=== PATIENT | female | born 1960 | race Caucasian/White ===

== ENCOUNTER → 2017-10-08 | Outpatient (CLI) | payer OTHER ==
--- NOTE | 2017-10-08 14:56 | XR ---
Sacrum and coccyx HISTORY: Sacroiliitis, pain 3 views of the sacrum and coccyx Sacroiliac joints show no erosion or ankylosis, no significant spurring. There is a dextroscoliosis p resent at the lower lumbar spine. Bone mineralization is maintained. No evident lytic or blastic lesi on. Some sclerosis present in the posterior elements of the lumbar spine may be indicative of facet a rthropathy. Suspect some mild spondylosis in the lower lumbar spine. No fracture or dislocation. Scle rosis of the pubic symphysis may represent IMPRESSION: Suspect degenerative disc disease and facet arthropathy.
== END | disposition home or self-care (01) ==
LOC: RADXRYALE 10:18
PROVIDERS: ATTEND Family Medicine
DX: M46.1 Sacroiliitis, not elsewhere classified (principal); M53.3 Sacrococcygeal disorders, not elsewhere classified
CPT/HCPCS: 72220

== ENCOUNTER → 2018-03-14 | Outpatient (CLI) | payer OTHER ==
--- NOTE | 2018-03-14 12:48 | FL ---
Modified barium swallow. HISTORY: Dysphagia. Modified barium swallow was performed with the department of speech pathology. The patient was prese nted with various consistencies of barium. There is no evidence for aspiration or penetration. Ventral spur formation at a lower cervical level does result in posterior impression upon the esophagus. Full report is to follow from the department of speech pathology. Impression: Ventral spur formation at a lower cervical level does result in posterior impression upo n the esophagus.
== END | disposition home or self-care (01) ==
LOC: RADFLMAIN 11:31
PROVIDERS: ATTEND Family Medicine
DX: R13.10 Dysphagia, unspecified (principal); K21.9 Gastro-esophageal reflux disease without esophagitis
CPT/HCPCS: 74230

== ENCOUNTER → 2018-08-28 | Outpatient (CLI) | payer OTHER ==
--- NOTE | 2018-08-29 11:11 | MM ---
Reason for exam: screening (asymptomatic). Last mammogram was performed 1 year and 4 months ago. History: Family history of breast cancer in mother and breast cancer in maternal aunt. Benign excisional biopsy of the right breast. Physical Findings: A clinical breast exam by your physician is recommended on an annual basis and results should be correlated with mammographic findings. MG 3D Screening Mammo W/Cad Bilateral CC and MLO view(s) were taken. Prior study comparison: April 23, 2017, mammogram, performed at [facility]. March 29, 2016, mammogram, performed at [facility]. There are scattered fibroglandular densities. No significant changes when compared with prior studies. ASSESSMENT: Benign, BI-RAD 2 RECOMMENDATION: Routine screening mammogram of both breasts in 1 year.
== END | disposition home or self-care (01) ==
LOC: RADMAMWWP 10:22
PROVIDERS: ATTEND Family Medicine
DX: Z12.31 Encounter for screening mammogram for malignant neoplasm of breast (principal)
CPT/HCPCS: 77063; 77067

== ENCOUNTER → 2019-05-21 | Outpatient (CLI) | payer OTHER ==
--- NOTE | 2019-05-22 06:55 | US ---
EXAMINATION TYPE: US pelvic complete DATE OF EXAM: 05/21/2019 COMPARISON: Pelvic MRI May 10, 2017 CLINICAL HISTORY: N92.1 Menorrhagia w/irregular cycle. TECHNIQUE: Transabdominal (TA). Date of LMP: Patient had bleeding from the beginning of March until the April 30. EXAM MEASUREMENTS: Uterus: 9.9 x 4.0 x 4.9 cm Endometrial Stripe: 0.5 cm Right Ovary: Surgically absent Left Ovary: 1.8 x 1.3 x 0.9 cm 1. Uterus: Anteverted wnl 2. Endometrium: wnl 3. Right Ovary: Surgically absent 4. Left Ovary: wnl 5. Bilateral Adnexa: wnl 6. Posterior cul-de-sac: wnl Transabdominal pelvic ultrasound shows an anteverted uterus with endometrial stripe measuring up to 6 mm which is perhaps mild to minimally thickened for postmenopausal female. No free fluid. Normal size left ovary. Right ovary surgically absent. No adnexal masses. IMPRESSION: Suboptimal study in transvaginal investigation was not performed. 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 Mild to minimal thickening of endometrial stripe without further investigation b y transvaginal pelvic investigation to better evaluate and characterize.
== END | disposition home or self-care (01) ==
LOC: RADUSWWP 16:09
PROVIDERS: ATTEND Obstetrics & Gynecology
DX: R93.89 Abnormal findings on diagnostic imaging of other specified body structures (principal); N92.1 Excessive and frequent menstruation with irregular cycle
CPT/HCPCS: 76856

== ENCOUNTER 2019-06-04 06:24 | Day surgery (SDC) | payer OTHER ==
[2019-05-29 17:49] VITALS: BMI 33.0
--- NOTE | 2019-06-03 20:45 | P.HPOB ---
History of Present Illness H&P Date: 06/03/19 Chief Complaint: Menorrhagia with irregular cycle This is a 59 y.o. female, 3, para 3, who presents for dilatation and curettage with hysteroscopy and Novasure endometrial ablation due to menorrhagia with irregular cycle. She complains of heavy, irregular, and painful menses for the last 3 years. Her pelvic US showed uterus measuring 9.9 x 4 x 4.9 cm and endometrial stripe thickness or 5 mm. Left ovary appears normal and right ovary is surgically removed. Her menses are occuring every 1-8 monts lasting 2.5-3 weeks with heavy clots. OB Hx: . 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 Review of Systems Constitutional: Reports night sweats, Reports weight loss, Denies chills, Denies fever Eyes: bilateral blurred vision, denies pain Ears, nose, mouth and throat: Denies headache, Denies sore throat Cardiovascular: Reports palpitations (occ), Denies chest pain, Denies shortness of breath Respiratory: Denies cough Gastrointestinal: Denies abdominal pain, Denies diarrhea, Denies nausea, Denies vomiting Genitourinary: Reports dysmenorrhea, Reports menorrhagia, Reports stress incontinence, Reports urinary frequency, Denies dysuria, Denies hematuria Menstruation: Reports cycle variable, Reports menses variable Musculoskeletal: Reports myalgias Neurological: Denies numbness, Denies weakness Psychiatric: Reports anxiety, Reports change in sleep habits, Reports difficulty concentrating, Reports insomnia, Reports irritability Endocrine: Reports flushing Past Medical History Past Medical History: GERD/Reflux, Hyperlipidemia, Osteoarthritis (OA), Thyroid Disorder Additional Past Medical History / Comment(s): Hx diverticulitis. Edema in ankles occ. States hx of CP 2019, went to [facility], told it was D/T flu related Sx. Heavy, irreg menses History of Any Multi-Drug Resistant Organisms: None Reported Past Surgical History: Section, Cholecystectomy, Orthopedic Surgery Additional Past Surgical History / Comment(s): C-S x2. Heel spur. Exc ovarian cyst. RK eye surg. Retinal eye tear surg. Rt oophorectomy. Hemorrhoid stapling. Colonoscopy Past Anesthesia/Blood Transfusion Reactions: Family History of Problems w/ Anesthesia Additional Past Anesthesia/Blood Transfusion Reaction / Comment(s): Mother had prob, unsure what. Past Psychological History: Anxiety Smoking Status: Former smoker Past Alcohol Use History: Rare Past Drug Use History: None Reported - Past Family History Father Brother(s) Family Medical History: Cancer, Deep Vein Thrombosis (DVT) Mother Family Medical History: Cancer, Diabetes Mellitus, Deep Vein Thrombosis (DVT) Medications and Allergies Home Medications Medication Instructions Recorded Confirmed Type Cholecalciferol [Vitamin D3 (25 2,000 unit PO DAILY 05/29/19 06/04/19 History Mcg = 1000 Iu)] Ibuprofen [Motrin] 800 mg PO DIRECTED PRN 05/29/19 06/04/19 History Levothyroxine Sodium [Synthroid] 100 mcg PO DAILY 05/29/19 06/04/19 History Allergies Allergy/AdvReac Type Severity Reaction Status Date / Time celecoxib [From Celebrex] Allergy bladder Verified 05/29/19 17:27 prob, nausea, itching cephalexin [From Keflex] Allergy flu-like Verified 05/29/19 17:27 symptoms, fatigue clindamycin Allergy Diarrhea Verified 05/29/19 17:27 codeine Allergy Rapid Verified 05/29/19 17:27 Heart Rate, "out of it" doxycycline Allergy yeast Verified 05/29/19 17:27 infection levofloxacin [From Levaquin] Allergy knee, Verified 05/29/19 17:27 joint pain, tendon issues loratadine [From Claritin] Allergy leg Verified 05/29/19 17:27 cramps, severe minocycline Allergy Abdominal Verified 05/29/19 17:27 Pain, sore throat, indigestion morphine Allergy Rapid Verified 05/29/19 17:27 Heart Rate, dyspnea prednisone Allergy leg pain, Verified 05/29/19 17:27 cramps simvastatin [From Zocor] Allergy head ache, Verified 05/29/19 17:27 joint pain tolterodine [From Detrol] Allergy migraines Verified 05/29/19 17:27 acetaminophen [From Vicodin] AdvReac didn't Verified 05/29/19 17:27 relieve pain ciprofloxacin [From Cipro] AdvReac tendon Verified 05/29/19 17:27 pain, severe hydrocodone [From Vicodin] AdvReac didn't Verified 01/03/20 17:27 relieve pain powder in gloves Allergy burning of Uncoded 05/29/19 17:45 skin Exam Osteopathic Statement: *. No significant issues noted on an osteopathic structural exam other than those noted in the History and Physical/Consult. HEENT: Within normal limits Heart: Regular rate and rhythm Lungs: clear to auscultation bilaterally Abdomen: soft, non-tender Pelvic: uterus small anteverted, non-tender, no adnexal masses or tender Extremities: neg. Homans Assessment and Plan (1) Menorrhagia with irregular cycle Current Visit: No Status: Acute Code(s): N92.1 - EXCESSIVE AND FREQUENT MENSTRUATION WITH IRREGULAR CYCLE SNOMED Code(s): 983630589 Plan: Proceed with dilatation and curettage with hysterectomy and Novasure endometrial ablation. I have discussed the risks, benefits, and alternative therapies for the above- mentioned procedure and for both sedation/anesthesia as well as necessary blood products administration, if indicated, as they pertain to this patient. The patient has indicated her understanding and acceptance of the risks and procedures discussed.
[~2019-06-04 06:24] MED LIST: LACTATED RINGERS 1,000 ML IV SCH; LIDOCAINE 1% 20 ML VIAL (10MG/ML) FOR IV START INTRADERMA PRN; ONDANSETRON 4 MG/2 ML VIAL IVP ONE; Pre Op ABX Message 1 EACH MISC MISCELLANE ONE; SCOPOLAMINE 1.5MG/72HR PATCH TRANSDERM ONE; fentaNYL (PF) 50 MCG/ML 2 ML AMP IV PRN
[2019-06-04 06:50] VITALS: RESP 16
[2019-06-04] MEDS ORDERED: HYDROmorphone (PF) 1 MG/ML ONE (07:31)
[2019-06-04] MEDS ORDERED: PROPOFOL 10 MG/ML 20 ML VIAL IV ONE (07:31)
[2019-06-04] MEDS ORDERED: KETOROLAC 30 MG/ML 1 ML VIAL ONE (07:31)
[2019-06-04] MEDS ORDERED: LIDOCAINE 1% INJ 10MG/ML (20 ML MDV) ONE (07:31)
[2019-06-04] MEDS ORDERED: MIDAZOLAM 2 MG/2 ML VIAL ONE (07:31)
[2019-06-04] MEDS ORDERED: SUCCINYLCHOLINE CHLORIDE 100 MG/5 ML SYR IV ONE (07:31)
[2019-06-04] MEDS ORDERED: fentaNYL (PF) 50 MCG/ML 2 ML AMP ONE (07:31)
--- NOTE | 2019-06-04 08:06 | P.OP ---
Date of Procedure: 06/04/19 Preoperative Diagnosis: Menorrhagia with irregular cycle Postoperative Diagnosis: Same Procedure(s) Performed: Dilation and curettage with hysteroscopy and NovaSure endometrial ablation Anesthesia: MANN Surgeon: Lesli Harris Estimated Blood Loss (ml): 5 Pathology: other (Endometrial curettings) Condition: stable Disposition: floor Indications for Procedure: This is a 59 y.o. female, 3, para 3, who presents for dilatation and curettage with hysteroscopy and Novasure endometrial ablation due to menorrhagia with irregular cycle. She complains of heavy, irregular, and painful menses for the last 3 years. Her pelvic US showed uterus measuring 9.9 x 4 x 4.9 cm and endometrial stripe thickness or 5 mm. Left ovary appears normal and right ovary is surgically removed. Her menses are occuring every 1-8 monts lasting 2.5-3 weeks with heavy clots. Operative Findings: Uterus is anteverted, sounded to 8 cm. Cervix is sounded to 3 cm. Cervical os is noted to be stenotic. A small amount of old dark brown blood was noted after dilation of the cervix. Upon hysteroscopy, fairly uniform pattern was noted with some distortion on the anterior wall. Minimal endometrial curettings are obtained. Description of Procedure: The patient is taken to the operating room. She is placed in the dorsal lithotomy position after general anesthesia was given. She is prepped and draped in the normal sterile fashion. Bladder is drained with a catheter and then removed. Pelvic exam is performed under anesthesia. Uterus is found to be anteverted with no adnexal masses. She is placed in slight Trendelenburg position. A right angle retractor is used to visualize the cervix. The anterior lip of the cervix is grasped with a single-tooth tenaculum. Cervical os is noted to be stenotic. A hemostat is used to gently open the cervix and then a small probe is inserted to further open the cervix. Cervix is sounded to 3 cm. Uterus is sounded to 8 cm. Cervix is gently dilated with Hewitt dilators until a hysteroscope could be passed. Hysteroscopy is performed using normal saline. The above noted findings are noted. Next a polyp forceps is introduced. A very minimal amount of tissue was obtained. Next medium-sized size sharp curette was placed. A minimal amount of endometrial curettings were obtained. Next NovaSure array was inserted into the endometrial cavity. Length was set at 5 cm and width was determined to be 3.8 cm. Next cavity assessment was completed and passed on the first try. Next NovaSure array was fired at 105 W for 42 seconds. Next the array was removed, inspected and then discarded. Next the hysteroscope was reinserted. Uniform charring was noted. Pictures were taken. Hysteroscope was removed. Single-tooth tenaculum was removed from the anterior lip of the cervix. Minimal bleeding was noted. All other instruments removed from the vagina. Sponge counts were correct. Patient is taken to recovery room in stable condition.
[2019-06-04 08:23] VITALS: TEMP 97.5
[2019-06-04] MEDS ORDERED: diphenhydrAMINE 50 MG/ML 1 ML VIAL IVP ONE (09:04)
[2019-06-04 10:05] VITALS: BP 105/69; PULSE 57
== END 2019-06-04 10:26 | disposition home or self-care (01) ==
LOC: OR 06:24
PROVIDERS: ATTEND Obstetrics & Gynecology
DX: N84.0 Polyp of corpus uteri (principal); N85.4 Malposition of uterus; N88.2 Stricture and stenosis of cervix uteri; K21.9 Gastro-esophageal reflux disease without esophagitis; E78.5 Hyperlipidemia, unspecified; M19.90 Unspecified osteoarthritis, unspecified site; E07.9 Disorder of thyroid, unspecified; F41.9 Anxiety disorder, unspecified; K57.90 Diverticulosis of intestine, part unspecified, without perforation or abscess without bleeding; Z91.040 Latex allergy status; Z88.1 Allergy status to other antibiotic agents; Z88.5 Allergy status to narcotic agent; Z88.8 Allergy status to other drugs, medicaments and biological substances; Z90.721 Acquired absence of ovaries, unilateral; Z98.890 Other specified postprocedural states; Z86.19 Personal history of other infectious and parasitic diseases; Z90.49 Acquired absence of other specified parts of digestive tract; Z86.69 Personal history of other diseases of the nervous system and sense organs; Z87.891 Personal history of nicotine dependence; Z79.890 Hormone replacement therapy; Z79.1 Long term (current) use of non-steroidal anti-inflammatories (NSAID); Z91.048 Other nonmedicinal substance allergy status; Z84.89 Family history of other specified conditions; Z80.9 Family history of malignant neoplasm, unspecified; Z82.49 Family history of ischemic heart disease and other diseases of the circulatory system; Z83.3 Family history of diabetes mellitus
CPT/HCPCS: 88305; 58563; J2250; J1200; J2405; J2001; J3010; J1885; J1170; J0330; J2704

== ENCOUNTER → 2019-11-13 | Outpatient (CLI) | payer OTHER ==
--- NOTE | 2019-11-16 10:18 | MM ---
Reason for exam: screening (asymptomatic). Last mammogram was performed 1 year and 2 months ago. History: Family history of breast cancer in mother and breast cancer in maternal aunt. Benign excisional biopsy of the right breast. Physical Findings: A clinical breast exam by your physician is recommended on an annual basis and results should be correlated with mammographic findings. MG 3D Screening Mammo W/Cad Bilateral CC and MLO view(s) were taken. Prior study comparison: August 28, 2018, bilateral MG 3d screening mammo w/cad. April 23, 2017, mammogram, performed at [facility]. The breast tissue is heterogeneously dense. This may lower the sensitivity of mammography. There are benign appearing round calcifications bilaterally. There is no discrete abnormality. ASSESSMENT: Benign, BI-RAD 2 RECOMMENDATION: Routine screening mammogram of both breasts in 1 year.
== END | disposition home or self-care (01) ==
LOC: RADMAMWWP 13:55
PROVIDERS: ATTEND Obstetrics & Gynecology
DX: Z12.31 Encounter for screening mammogram for malignant neoplasm of breast (principal)
CPT/HCPCS: 77063; 77067

== ENCOUNTER → 2020-03-07 | Outpatient (CLI) | payer OTHER ==
--- NOTE | 2020-03-22 14:41 | EM ---
This is a report on the 14 day event monitor. Baseline EKG showed sinus rhythm. Patient mostly remained in sinus rhythm and sinus tachycardia. There are occasional APCs and PVCs and short runs of paroxysmal SVT. The paroxysmal SVT consist of about 4-5 beats. At the time. Patient complained of racing of the heart beat and irregular heartbeat on many occasions. Mostly correlating signs sinus rhythm. Occasional correlation with APCs and PVCs noted. No significant ventricular arrhythmias. Final impression #1. Sinus rhythm and sinus tachycardia #2. Brief episodes of SVT consisting of 4 to 5 beats, asymptomatic #3 occasional APCs and PVCs. #4. Patient's symptoms of irregular heartbeat and flutter did not correlate with any significant cardiac events. There appears some correlation with APCs and PVCs. MTDD
--- NOTE | 2020-03-22 14:48 | P.CEMON ---
This is a report on the 14 day event monitor. Baseline EKG showed sinus rhythm. Patient mostly remained in sinus rhythm and sinus tachycardia. There are occasional APCs and PVCs and short runs of paroxysmal SVT. The paroxysmal SVT consist of about 4-5 beats. At the time. Patient complained of racing of the heart beat and irregular heartbeat on many occasions. Mostly correlating signs sinus rhythm. Occasional correlation with APCs and PVCs noted. No significant ventricular arrhythmias. Final impression #1. Sinus rhythm and sinus tachycardia #2. Brief episodes of SVT consisting of 45 beats, asymptomatic #3 occasional APCs and PVCs. #4. Patient's symptoms of irregular heartbeat and flutter did not correlate with any significant cardiac events. There appears some correlation with APCs and PVCs.
== END | disposition home or self-care (01) ==
LOC: RADECHMAIN 11:53
PROVIDERS: ATTEND Family Medicine
DX: I49.9 Cardiac arrhythmia, unspecified (principal); R00.0 Tachycardia, unspecified; R00.2 Palpitations
CPT/HCPCS: 93270

== ENCOUNTER → 2020-03-17 | Outpatient (CLI) | payer OTHER ==
--- NOTE | 2020-03-17 15:41 | US ---
EXAMINATION TYPE: US thyroid st tissue head/neck DATE OF EXAM: 03/17/2020 COMPARISON: NONE CLINICAL HISTORY: E83.52 hypercalcemia,E21.0 primary hyperparathyroid. hypercalcemia, hyperparathyroi dism GLAND SIZE: Right Lobe: 4.0 x 1.6 x 1.3 cm Overall Parenchyma: homogenous Left Lobe: 3.5 x 1.1 x 1.3 cm Overall Parenchyma: homogeneous Isthmus Thickness: 0.3 cm NODULES RIGHT: # of nodules measured on right: 0 LEFT: # of nodules measured on left: 0 ISTHMUS: # of nodules measured in the isthmus: 0 Bilateral neck scanned, no evidence of lymphadenopathy. Homogeneous small size thyroid without suspicious focal nodule. IMPRESSION: As above. No suspicious adjacent thyroid masses to suggest focal parathyroid adenoma.
== END | disposition home or self-care (01) ==
LOC: RADUSWWP 14:52
PROVIDERS: ATTEND Family Medicine
DX: E83.52 Hypercalcemia (principal)
CPT/HCPCS: 76536

== ENCOUNTER → 2020-07-15 | Outpatient (CLI) | payer OTHER ==
[2020-07-15 10:12] VITALS: BP 128/77; PULSE 76; RESP 16; TEMP 97.7
--- NOTE | 2020-07-15 10:24 | P.GSHP ---
History of Present Illness H&P Date: 07/15/20 Chief Complaint: breast lump Estela is a 60 year old white female seen in consultation for Dr. Harris with a "knot" above her right breast. This has been present for several months. She has not had anything like this in the past. It is not painful. It has gotten larger. She has not noted any other lumps masses or nodules in either breast for which she is concerned. She had a bilateral mammogram on which was benign BIRADS 2. She is not complaining of any nipple discharge or skin changes. She has no history of any recent trauma or infection of the breast. Caffeine: hot chocolate daily nicotine: former smoker stopped 1979 umu-bromine: hot chocolate daily Family history: Mother: Breast cancer, dx: 69 of this at 78 maternal aunt: breast cancer dx: at 47, at 57 of breast cancer brother: stomach cancer paternal grandfather: prostate Hormonal History: menarche: 17 , breast fed: no, age at first :21 menopause: uterine ablation last year, no period since, at 59 BCP: less than one year Surgical History: heel spurs two C-sections gallbaldder cyst on ovary single oophrectomy Hemorrhoid surgery RK surgery Medical History: hypothyroid hyperparathyroid: scheduled for surgery at [place] next week, [place] 11.4 Social History: nicotine: none, stopped 1979 alcohol: none drugs: none - Constitutional Constitutional: Reports sweats - EENT Eyes: denies blurred vision, denies pain Ears: deny: decreased hearing, tinnitus Ears, nose, mouth and throat: Denies headache, Denies sore throat - Breasts Breasts: bilateral: as per HPI - Cardiovascular Cardiovascular: Denies chest pain, Denies shortness of breath - Respiratory Respiratory: Denies cough, Denies 7 - Gastrointestinal Gastrointestinal: Reports constipation, Denies abdominal pain, Denies diarrhea, Denies nausea, Denies vomiting - Genitourinary (Female) Genitourinary: Denies dysuria, Denies hematuria - Menstruation Menstruation: Reports postmenopausal - Musculoskeletal Musculoskeletal: Reports myalgias - Integumentary Integumentary: Denies pruritus, Denies rash - Neurological Neurological: Denies numbness, Denies weakness - Psychiatric Psychiatric: Reports anxiety, Denies depression - Endocrine Comment: hypothryoid, hyperparathyroid - Hematologic/Lymphatic Comment: none - Allergic/Immunologic Allergic/Immunologic: Reports seasonal allergies Medications and Allergies Home Medications Medication Instructions Recorded Confirmed Type Cholecalciferol [Vitamin D3 (25 2,000 unit PO DAILY 05/29/19 06/04/19 History Mcg = 1000 Iu)] Ibuprofen [Motrin] 800 mg PO DIRECTED PRN 05/29/19 06/04/19 History Levothyroxine Sodium [Synthroid] 100 mcg PO DAILY 05/29/19 06/04/19 History Allergies Allergy/AdvReac Type Severity Reaction Status Date / Time celecoxib [From Celebrex] Allergy bladder Verified 07/15/20 09:59 prob, nausea, itching cephalexin [From Keflex] Allergy flu-like Verified 07/15/20 09:59 symptoms, fatigue clindamycin Allergy Diarrhea Verified 07/15/20 09:59 codeine Allergy Rapid Verified 07/15/20 09:59 Heart Rate, "out of it" doxycycline Allergy yeast Verified 07/15/20 09:59 infection levofloxacin [From Levaquin] Allergy knee, Verified 07/15/20 09:59 joint pain, tendon issues loratadine [From Claritin] Allergy leg Verified 07/15/20 09:59 cramps, severe minocycline Allergy Abdominal Verified 07/15/20 09:59 Pain, sore throat, indigestion morphine Allergy Rapid Verified 07/15/20 09:59 Heart Rate, dyspnea prednisone Allergy leg pain, Verified 07/15/20 09:59 cramps simvastatin [From Zocor] Allergy head ache, Verified 07/15/20 09:59 joint pain tolterodine [From Detrol] Allergy migraines Verified 07/15/20 09:59 acetaminophen [From Vicodin] AdvReac didn't Verified 07/15/20 09:59 relieve pain ciprofloxacin [From Cipro] AdvReac tendon Verified 07/15/20 09:59 pain, severe hydrocodone [From Vicodin] AdvReac didn't Verified 07/15/20 09:59 relieve pain powder in gloves Allergy burning of Uncoded 07/15/20 09:59 skin Surgical - Exam BMI 30.8 - General well developed, no distress - Eyes normal ocular movement - ENT normal pinna, normal mucosa - Neck no masses, trachea midline - Respiratory normal respiratory effort, clear to auscultation - Cardiovascular Rhythm: regular Heart Sounds: normal: S1, S2 - Abdomen Abdomen: soft, bowel sounds - Integumentary normal turgor - Neurologic no disoriented, no combative - Musculoskeletal normal gait, normal posture - Psychiatric oriented to time, oriented to person, oriented to place, speech is normal, memory intact breast exam: BRA: 36A inspection: Grade 2 ptosis bilateral Palpation: Right breast: Multi-positional exam of the breast does not reveal any dominant masses or nodules of concern in the breast, on the right chest wall just superior to the area of the breast there is approximately a 1 cm area of increased induration Right axilla: No adenopathy of concern Left breast: Multi-positional exam no dominant masses or nodules of concern, fibrocystic changes Left axilla: No adenopathy of concern Results Patient's most recent mammogram results were reviewed this was from Assessment and Plan Assessment: Impression: 1. Area of induration/nodularity right chest wall 2. Benign BIRADS 2 mammogram in October 2019 3. Fibrocystic breast changes 4. Family history of breast cancer 5. Hypothyroid 6. Hyperparathyroid Plan: 1. Ultrasound area of concern right chest wall 2. Follow-up after ultrasound is performed 3. Patient is scheduled for parathyroid surgery next week The patient will follow up here after her parathyroid surgery for more definitive evaluation of the nodularity on the right chest wall. CC: Dr. Harris, Dr. Paul Encounter 35 minutes, time spent and physical examination, review of medical records, and consultation.
--- NOTE | 2020-07-15 13:27 | US ---
EXAMINATION TYPE: US mass soft tissue chest/back DATE OF EXAM: 07/15/2020 COMPARISON: NONE CLINICAL HISTORY: R22.2. Pt states palpable lump right medial chest wall No abnormality visualized at pt's palpable area right medial chest wall No cystic or solid areas are evident. Preliminary results were reviewed with the referring surgeon. IMPRESSION: 1. No suspicious ultrasound abnormality.
== END | disposition home or self-care (01) ==
LOC: WWCWWP 09:51
PROVIDERS: ATTEND Surgery
DX: R22.2 Localized swelling, mass and lump, trunk (principal)

== ENCOUNTER → 2020-08-02 | Outpatient (CLI) | payer OTHER ==
[2020-08-02 19:42] LABS: African American GFR (CKD) 81.7 (60.0-200.0); Albumin 4.7 g/dL (3.80-4.90); Albumin/Globulin Ratio 1.88 (1.60-3.17); BUN/Creat Ratio 18.89 Ratio (12.00-20.00); Calcium 10.2 mg/dL (8.7-10.3); Globulin 2.5 g/dL (1.6-3.3); Non-African American GFR(CKD) 70.5 (60.0-200.0); Potassium 4.5 mmol/L (3.5-5.5); Total Bilirubin 0.5 mg/dL (0.3-1.2); Total Protein 7.2 g/dL (6.2-8.2)
== END | disposition home or self-care (01) ==
LOC: LABWHC1 11:29
PROVIDERS: ATTEND Internal Medicine Endocrinology, Diabetes & Metabolism
DX: E21.0 Primary hyperparathyroidism (principal)
CPT/HCPCS: 36415; 80053; 82306; 83970

== ENCOUNTER → 2020-08-18 | Outpatient (CLI) | payer OTHER ==
[2020-08-18 10:17] VITALS: BP 124/84; PULSE 63; RESP 16; TEMP 97.6
--- NOTE | 2020-08-18 10:43 | P.PCN ---
Date of Procedure: 08/18/20 Preoperative Diagnosis: Nodule and skin thickening right chest wall Postoperative Diagnosis: same Procedure(s) Performed: Punch biopsy lesion right chest wall Anesthesia: local Surgeon: Chantal No Pathology: other (Tissue right chest wall) Condition: stable Disposition: same day Indications for Procedure: Skin thickening/nodularity right chest wall Description of Procedure: Area of concern in the right chest was prepped using Betadine. 1% lidocaine was used to anesthetize the area of concern. A 4 mm punch biopsy procedure was performed. The specimen was removed. There was some mild oozing and a suture was placed. The patient tolerated the procedure in stable condition. She will follow up next week for pathology results.
== END ==
LOC: WWCWWP 10:02
PROVIDERS: ATTEND Surgery
DX: R22.2 Localized swelling, mass and lump, trunk (principal)

== ENCOUNTER → 2020-08-25 | Outpatient (CLI) | payer OTHER ==
[2020-08-25 10:11] VITALS: BP 127/82; PULSE 65; RESP 18; TEMP 97.7
--- NOTE | 2020-08-25 10:51 | P.PN ---
Progress Note - Text Progress Note Date: 08/25/20 Estela is a 60 year old female status post a right chest wall punch biopsy on [id number]. This revealed actinic clearly damaged skin with focal mild atypia and dermal fibrosis, negative for malignancy. The patient tolerated the procedure well. Incision: Clean and dry Sutures removed Patient to follow up in October after her bilateral mammogram CC: Dr. Rebolledo, Dr. Harris
== END | disposition home or self-care (01) ==
LOC: WWCWWP 09:57
PROVIDERS: ATTEND Surgery
DX: Z48.02 Encounter for removal of sutures (principal)

== ENCOUNTER → 2020-09-23 | Outpatient (CLI) | payer OTHER ==
[2020-09-23 22:51] LABS: African American GFR (CKD) 94.2 (60.0-200.0); Albumin 4.7 g/dL (3.80-4.90); Albumin/Globulin Ratio 1.68 (1.60-3.17); Anion Gap 8.3 mmol/L (4.00-12.00); Calcium 9.6 mg/dL (8.7-10.3); Carbon Dioxide 26.7 mmol/L (21.6-31.8); Chol/HDL Ratio 5.58; Globulin 2.8 g/dL (1.6-3.3); LDL Cholesterol,Calculated 107.8 mg/dL (0.0-131.0); Non-African American GFR(CKD) 81.3 (60.0-200.0); Potassium 4.5 mmol/L (3.5-5.5); Total Bilirubin 0.7 mg/dL (0.3-1.2); Total Protein 7.5 g/dL (6.2-8.2); VLDL Calculation 66.2 mg/dL (5.00-40.00)
== END | disposition home or self-care (01) ==
LOC: LABWHC1 09:18
PROVIDERS: ATTEND Family Medicine
DX: E03.9 Hypothyroidism, unspecified (principal); E78.2 Mixed hyperlipidemia; E87.8 Other disorders of electrolyte and fluid balance, not elsewhere classified
CPT/HCPCS: 36415; 80053; 80061; 84443

== ENCOUNTER → 2021-01-19 | Outpatient (CLI) | payer OTHER ==
[2021-01-19 12:38] VITALS: BP 119/81; PULSE 97; RESP 16; TEMP 98
--- NOTE | 2021-01-19 12:53 | P.PN ---
Subjective Progress Note Date: 01/19/21 Principal diagnosis: fibrocystic breast Estela is a 60 year old white female seen initially in consultation for Dr. Harris with a "knot" above her right breast. This has been present for several months. She has not had anything like this in the past. It is not painful. It has gotten larger. She has not noted any other lumps masses or nodules in either breast for which she is concerned. [place] [address] which was benign BIRADS 2. She is not complaining of any nipple discharge or skin changes. She has no history of any recent trauma or infection of the breast. She underwent a punch biopsy of the skin of the right chest wall and 320 521. This revealed actinically damaged skin with focal mild atypia and dermal fibrosis negative for malignancy. [place] [address] this was felt to be incomplete revealing a nodular density in the inner upper right breast zone b. An ultrasound was [place] [address] which did not reveal any distinct solid or cystic lesions. It was felt to be probably benign and six-month follow-up right breast mammogram was recommended. The patient has not noted any changes in either breast or chest wall. The "not that she had prior has not changed. Caffeine: stopped hot chocolate daily nicotine: former smoker stopped 1979 Chocolate: At this time occasional Family history: Mother: Breast cancer, dx: 69 of this at 78 maternal aunt: breast cancer dx: at 47, at 57 of breast cancer brother: stomach cancer paternal grandfather: prostate Hormonal History: menarche: 17 , breast fed: no, age at first :21 menopause: uterine ablation last year, no period since, at 59 BCP: less than one year Surgical History: heel spurs two C-sections gallbaldder cyst on ovary single oophrectomy Hemorrhoid surgery RK surgery parathyroid surgery Medical History: hypothyroid hyperparathyroid followed by DR. Leblanc Social History: nicotine: none, stopped 1979 alcohol: none drugs: none - Constitutional Constitutional: Reports sweats - EENT Eyes: denies blurred vision, denies pain Ears: deny: decreased hearing, tinnitus Ears, nose, mouth and throat: Denies headache, Denies sore throat - Breasts Breasts: bilateral: as per HPI - Cardiovascular Cardiovascular: Denies chest pain, Denies shortness of breath - Respiratory Respiratory: Denies cough - Gastrointestinal Gastrointestinal: Reports constipation, Denies abdominal pain, Denies diarrhea, Denies nausea, Denies vomiting - Genitourinary (Female) Genitourinary: Denies dysuria, Denies hematuria - Menstruation Menstruation: Reports postmenopausal - Musculoskeletal Musculoskeletal: Reports myalgias - Integumentary Integumentary: Denies pruritus, Denies rash - Neurological Neurological: Denies numbness, Denies weakness - Psychiatric Psychiatric: Reports anxiety, Denies depression - Endocrine Comment: hypothryoid, hyperparathyroid - Hematologic/Lymphatic Comment: none - Allergic/Immunologic Allergic/Immunologic: Reports seasonal allergies Objective - Vital Signs Vital signs: Vital Signs Temp 98.0 F 01/19/21 12:34 Pulse 97 01/19/21 12:34 Resp 16 01/19/21 12:34 BP 119/81 01/19/21 12:34 Pulse Ox 97 01/19/21 12:34 Intake & Output 01/18/21 01/19/21 01/19/21 18:59 06:59 18:59 Weight 80.739 kg - Constitutional General appearance: Present: average body habitus - EENT Eyes: Present: EOMI ENT: Present: hearing grossly normal - Neck Neck: Present: normal ROM - Respiratory Respiratory: bilateral: CTA - Cardiovascular Rhythm: regular Heart sounds: normal: S1, S2 - Integumentary Integumentary Comment(s): incisions well healed - Musculoskeletal Musculoskeletal: Present: gait normal - Psychiatric Psychiatric: Present: A&O x's 3, appropriate affect, intact judgment & insight - Additional findings Additional findings: [place] examination: Inspection: Bilateral grade 2 ptosis Palpation: Right breast: Multi-positional exam fibrocystic changes, no discrete dominant masses or nodules of concern Right axilla: No adenopathy of concern Left breast: Multiple positional exam fibrocystic changes, no dominant masses or nodules of concern Left axilla: No adenopathy of concern Assessment and Plan Assessment: Impression/Plan: 1. Fibrocystic breast changes 2. Recent mammogram and ultrasound of right breast BIRADS 3 repeat bilateral mammogram and right breast ultrasound in 6 months 3. Patient notes anything of concern we'll see her sooner 4. Patient is following with endocrinology regarding possible elevated calcium Cc: Dr. Celeste
== END ==
LOC: WWCWWP 12:28
PROVIDERS: ATTEND Surgery
DX: N60.11 Diffuse cystic mastopathy of right breast (principal); E03.9 Hypothyroidism, unspecified; Z79.890 Hormone replacement therapy; Z87.891 Personal history of nicotine dependence; Z88.6 Allergy status to analgesic agent; Z88.1 Allergy status to other antibiotic agents; Z88.5 Allergy status to narcotic agent; Z88.8 Allergy status to other drugs, medicaments and biological substances

== ENCOUNTER → 2021-03-22 | Outpatient (CLI) | payer OTHER ==
[2021-03-23 01:17] LABS: African American GFR (CKD) 103.6 (60.0-200.0); Albumin 4.9 g/dL (3.8-4.9); Albumin/Globulin Ratio 1.71 (1.60-3.17); Anion Gap 9.8 mmol/L (4.00-12.00); BUN/Creat Ratio 17.41 Ratio (12.00-20.00); Blood Urea Nitrogen 12.8 mg/dL (9.0-27.0); Calcium 9.8 mg/dL (8.7-10.3); Carbon Dioxide 27.5 mmol/L (21.6-31.8); Globulin 2.8 g/dL (1.6-3.3); Non-African American GFR(CKD) 89.4 (60.0-200.0); Potassium 4.5 mmol/L (3.5-5.5); Total Bilirubin 0.5 mg/dL (0.30-1.20); Total Protein 7.7 g/dL (6.2-8.2)
== END | disposition home or self-care (01) ==
LOC: LABWHC1 12:34
PROVIDERS: ATTEND Internal Medicine Endocrinology, Diabetes & Metabolism
DX: E21.0 Primary hyperparathyroidism (principal); E55.9 Vitamin D deficiency, unspecified
CPT/HCPCS: 36415; 80053; 82306; 83970; 84443

== ENCOUNTER → 2021-04-26 | Outpatient (CLI) | payer OTHER ==
--- NOTE | 2021-04-26 16:53 | US ---
EXAMINATION TYPE: US carotid duplex BILAT DATE OF EXAM: 04/26/2021 COMPARISON: NONE CLINICAL HISTORY: G45.9 Transient cerebral ischemic attack,. EXAM MEASUREMENTS: RIGHT: Peak Systolic Velocity (PSV) cm/sec ----- Right CCA: 79.0 ----- Right ICA: 79.0 ----- Right ECA: 100.0 ICA/CCA ratio: 1.0 RIGHT: End Diastole cm/sec ----- Right CCA: 23.8 ----- Right ICA: 36.2 ----- Right ECA: 21.4 LEFT: Peak Systolic Velocity (PSV) cm/sec ----- Left CCA: 102.0 ----- Left ICA: 82.0 ----- Left ECA: 93.2 ICA/CCA ratio: 0.80 LEFT: End Diastole cm/sec ----- Left CCA: 30.9 ----- Left ICA: 19.6 ----- Left ECA: 19.0 VERTEBRALS (direction of flow): Right Vertebral: Antegrade Left Vertebral: Antegrade Rhythm: Normal No elevated velocities IMPRESSION: 1. No suspicious flow-limiting stenosis based on velocity. Criteria for Assigning % of Stenosis / Diameter reduction (Estimation based on the indirect measurements of the internal carotid artery velocities (ICA PSV). 1. Normal (no stenosis)=ICA PSV < 125 cm/s: ratio < 2.0: ICA EDV<40 cm/s. 2. Less than 50% stenosis=ICA PSV < 125 cm/s: ratio < 2.0: ICA EDV<40 cm/s. 3. 50 to 69% stenosis=ICA PSV of 125 to 230 cm/s: ration 2.0 ? 4.0: ICA EDV 40-100 cm/s. 4. Greater than 70% stenosis to near occlusion= ICA PSV > 230 cm/s: ratio > 4.0: ICA EDV > 100 cm/s. 5. Near occlusion= ICA PSV velocities may be low or undetectable: variable ratio and ICA EDV. 6. Total occlusion=unable to detect flow.
--- NOTE | 2021-04-27 08:51 | ECHOF ---
Referral Reason:G45.9 Transient cerebral ischemic attack, MEASUREMENTS -------- HEIGHT: 160.0 cm WEIGHT: 83.9 kg BP: RVIDd: 2.8 cm (< 3.3) IVSd: 1.5 cm (0.6 - 1.1) LVIDd: 3.1 cm (3.9 - 5.3) LVPWd: 1.4 cm (0.6 - 1.1) IVSs: 1.9 cm LVIDs: 1.9 cm LVPWs: 1.5 cm LAESV Index (A-L): 28.81 ml/m Ao Diam: 2.7 cm (2.0 - 3.7) AV Cusp: 1.7 cm (1.5 - 2.6) LA Diam: 2.9 cm (2.7 - 3.8) MV EXCURSION: 11.820 mm (> 18.000) MV EF SLOPE: 60 mm/s (70 - 150) EPSS: 0.2 cm MV E Keshawn: 0.90 m/s MV DecT: 196 ms MV A Keshawn: 1.04 m/s MV E/A Ratio: 0.87 RAP: 5.00 mmHg RVSP: 30.32 mmHg FINDINGS -------- Sinus rhythm. This was a technically adequate study. The left ventricular size is normal. There is moderate concentric left ventricular hypertrophy. O verall left ventricular systolic function is normal with, an EF between 55 - 60 %. The diastolic fi lling pattern is normal for the age of the patient {E/E'}. The right ventricle is normal in size. Normal LA size by volume 22+/-6 ml/m2. The right atrial size is normal. Interatrial and interventricular septum intact. The aortic valve is trileaflet and appears structurally normal. There is no evidence of aortic regu rgitation. There is no evidence of aortic stenosis. Mild mitral regurgitation is present. No regurgitation noted Trace/mild (physiologic) pulmonic regurgitation. The aortic root size is normal. IVC Not well visulized. There is no pericardial effusion. CONCLUSIONS -------- 1. Sinus rhythm. 2. The left ventricular size is normal. 3. There is moderate concentric left ventricular hypertrophy. 4. Overall left ventricular systolic function is normal with, an EF between 55 - 60 %. 5. The diastolic filling pattern is normal for the age of the patient {E/E'} 6. Trace/mild (physiologic) pulmonic regurgitation. SCHOOL PROGRAM DIRECTOR: Anna Stone RDCS
== END | disposition home or self-care (01) ==
LOC: RADUSWWP 11:05
PROVIDERS: ATTEND Family Medicine
DX: G45.9 Transient cerebral ischemic attack, unspecified (principal); I37.1 Nonrheumatic pulmonary valve insufficiency; I51.7 Cardiomegaly
CPT/HCPCS: 93306; 93880

== ENCOUNTER → 2021-09-28 | Outpatient (CLI) | payer OTHER ==
[2021-09-28 11:15] VITALS: BP 115/83; PULSE 59; RESP 13; TEMP 97.9
--- NOTE | 2021-09-28 12:02 | P.PN ---
Subjective Progress Note Date: 09/28/21 Principal diagnosis: fibrocystic breast changes fibrocystic breast Estela is a 60 year old white female seen initially in consultation for Dr. Harris with a "knot" above her right breast. This has been present for several months. She has not had anything like this in the past. It is not painful. It has gotten larger. She has not noted any other lumps masses or nodules in either breast for which she is concerned. She had a bilateral mammogram on which was benign BIR ADS 2. She is not complaining of any nipple discharge or skin changes. She has no history of any recent trauma or infection of the breast. She underwent a punch biopsy of the skin of the right chest wall and 320 521. This revealed actinically damaged skin with focal mild atypia and dermal fibrosis negative for malignancy. [place] [address] this was felt to be incomplete revealing a nodular density in the inner upper right breast zone b. An ultrasound was recommended. Ultrasound was performed on which did not reveal any distinct solid or cystic lesions. It was felt to be probably benign and six-month follow-up right breast mammogram was recommended. The patient has not noted any changes in either breast or chest wall. The "knot" that she had prior has not changed. 09-25-21 The patient had a bilateral mammogram on 09-04-[address] [facility]; the report was BENIGN BIRAD 2; she also had a right breast mammogram which was BIRAD 1. the recommendation was for repeat mammogram in 1 year. She is complaining of bilateral breast tenderness worse in the left breast. She notes the tenderness several times a week and they feel achy. She is not complaining of any nipple discharge She stop all caffeine, she does not smoke and is not exposed to secondhand smoke, she is not taking any hormonal therapy, and she eats chocolate only occasionally. 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 Caffeine: stopped hot chocolate daily nicotine: former smoker stopped 1980 Chocolate: At this time occasional Family history: Mother: Breast cancer, dx: 69 of this at 78 maternal aunt: breast cancer dx: at 47, at 57 of breast cancer brother: stomach cancer paternal grandfather: prostate Hormonal History: menarche: 17 , breast fed: no, age at first :21 menopause: uterine ablation last year, no period since, at 59 BCP: less than one year Surgical History: heel spurs two C-sections gallbaldder cyst on ovary single oophrectomy Hemorrhoid surgery RK surgery parathyroid surgery Medical History: hypothyroid hyperparathyroid followed by DR. Benji mcgee stroke symptoms resolved Social History: nicotine: none, stopped 1979 alcohol: none drugs: none - Constitutional Constitutional: Reports sweats - EENT Eyes: denies blurred vision, denies pain Ears: deny: decreased hearing, tinnitus Ears, nose, mouth and throat: Denies headache, Denies sore throat - Breasts Breasts: bilateral: as per HPI - Cardiovascular Cardiovascular: Denies chest pain, Denies shortness of breath - Respiratory Respiratory: Denies cough - Gastrointestinal Gastrointestinal: Reports constipation, Denies abdominal pain, Denies diarrhea, Denies nausea, Denies vomiting - Genitourinary (Female) Genitourinary: Denies dysuria, Denies hematuria - Menstruation Menstruation: Reports postmenopausal - Musculoskeletal Musculoskeletal: Reports myalgias - Integumentary Integumentary: Denies pruritus, Denies rash - Neurological Neurological: Denies numbness, Denies weakness - Psychiatric Psychiatric: Reports anxiety, Denies depression - Endocrine Comment: hypothryoid, hyperparathyroid - Hematologic/Lymphatic Comment: none - Allergic/Immunologic Allergic/Immunologic: Reports seasonal allergies Objective - Vital Signs Vital signs: Vital Signs Temp 97.9 F 09/28/21 11:10 Pulse 59 L 09/28/21 11:10 Resp 13 09/28/21 11:10 BP 115/83 09/28/21 11:10 Pulse Ox 96 09/28/21 11:10 Intake & Output 09/27/21 09/28/21 09/28/21 18:59 06:59 18:59 Weight 86.636 kg - Constitutional General appearance: Present: cooperative - EENT Eyes: Present: EOMI ENT: Present: hearing grossly normal - Neck Neck: Present: normal ROM - Respiratory Respiratory: bilateral: CTA - Cardiovascular Rhythm: regular Heart sounds: normal: S1, S2 - Integumentary Integumentary: Present: normal turgor - Musculoskeletal Musculoskeletal: Present: gait normal - Psychiatric Psychiatric: Present: A&O x's 3, appropriate affect, intact judgment & insight - Additional findings Additional findings: Breast Exam: BRA: 40C inspection: bilateral grade 2/3 ptosis palpation: right breast: multipositional exam fibrocystic changes no dominant masses or nodules of concern Right axilla: No adenopathy of concern Left breast: Multi-positional exam fibrocystic changes no dominant masses or notches of concern Left axilla: No adenopathy concern Assessment and Plan Assessment: Impression: Fibrocystic breast changes Plan: Repeat bilateral mammogram in 1 year with physician exam at that time CC: Dr. Rebolledo
== END ==
LOC: WWCWWP 10:59
PROVIDERS: ATTEND Surgery
DX: N60.11 Diffuse cystic mastopathy of right breast (principal); N60.12 Diffuse cystic mastopathy of left breast; E03.9 Hypothyroidism, unspecified; Z86.73 Personal history of transient ischemic attack (TIA), and cerebral infarction without residual deficits; Z87.891 Personal history of nicotine dependence; Z88.1 Allergy status to other antibiotic agents; Z88.5 Allergy status to narcotic agent; Z88.8 Allergy status to other drugs, medicaments and biological substances; Z88.6 Allergy status to analgesic agent

== ENCOUNTER → 2021-10-09 | Outpatient (CLI) | payer OTHER ==
--- NOTE | 2021-10-09 11:50 | XR ---
EXAMINATION TYPE: XR chest 2V DATE OF EXAM: 10/09/2021 COMPARISON: NONE TECHNIQUE: PA and lateral views submitted. HISTORY: Cough FINDINGS: Hypertrophic change of the spine. Hyperinflation. No overt failure. No pleural effusion or pneumothor ax. No focal pneumonia. Heart size normal. IMPRESSION: 1. No acute process.
== END | disposition home or self-care (01) ==
LOC: RADXRYALE 11:00
PROVIDERS: ATTEND Family Medicine
DX: R05.9 Cough, unspecified (principal)
CPT/HCPCS: 71046

== ENCOUNTER → 2021-11-24 | Outpatient (CLI) | payer OTHER ==
--- NOTE | 2021-11-26 10:24 | CT ---
EXAMINATION TYPE: CT heart w calcium score DATE OF EXAM: 11/24/2021 COMPARISON: Chest radiograph 10/09/2021 HISTORY: Screening for cardiovascular disorder. 213.9 CT DLP: 80.80 mGycm Automated exposure control for dose reduction was used. CT CALCIUM SCORING Coronary calcium is a marker for plaque (fatty deposits) in a blood vessel or atherosclerosis (harden ing of the arteries). The presence and amount of calcium detected in a coronary artery by the CT sca n, indicates the presence and amount of atherosclerotic plaque. These calcium deposits appear years before the development of heart disease symptoms such as chest pain and shortness of breath. A calcium score is computed for each of the coronary arteries based upon the volume and density of th e calcium deposits. This can be referred to as your calcified plaque burden. It does not correspond directly to the percentage of narrowing in the artery but does correlate with the severity of the un derlying coronary atherosclerosis. PROCEDURE TECHNIQUE - Prospective Gating was used. Slice thickness: 3mm. Density threshold (HU): 130, Pixel threshold: 3, Algorithm: discrete. RESULTS Region: LM Calcium Score (Agatston): 0 Volume (mm3): 0 Mass (g): 0 Region: RCA Calcium Score (Agatston): 0 Volume (mm3): 0 Mass (g): 0 Region: LAD Calcium Score (Agatston): 0 Volume (mm3): 0 Mass (g): 0 Region: CX Calcium Score (Agatston): 0 Volume (mm3): 0 Mass (g): 0 Region: PDA Calcium Score (Agatston): 0 Volume (mm3): 0 Mass (g): 0 Total: Calcium Score (Agatston): 0 Volume (mm3): 0 Mass (g): 0 TOTAL CALCIUM SCORE: 0 IMPRESSION: Calcium Score: 0 Implication: No identifiable plaque. Risk of Coronary Artery Disease: Very low, generally less than 5%. CALCIUM SCORE IMPLICATION RISK OF C ORONARY ARTERY DISEASE 0 No identifiable plaque Very low, generally less than 5% 1-10 Minimal identifiable plaque Very unlikely, less than 10% 11-100 Definite, at least mild atherosclerotic plaque Mild or m inimal coronary narrowings likely 101-400 Definite, at least moderate atherosclerotic plaque Mild coronary ar albina disease highly likely, significant narrowing possible 401 or Higher Extensive atherosclerotic plaque High lik elihood of at least one significant coronary narrowing
== END | disposition home or self-care (01) ==
LOC: RADCTMAIN 16:29
PROVIDERS: ATTEND Family Medicine
DX: Z12.2 Encounter for screening for malignant neoplasm of respiratory organs (principal); I25.10 Atherosclerotic heart disease of native coronary artery without angina pectoris; Z82.49 Family history of ischemic heart disease and other diseases of the circulatory system
CPT/HCPCS: 75571

== ENCOUNTER → 2022-09-21 | Outpatient (CLI) | payer OTHER ==
--- NOTE | 2022-09-21 14:00 | XR ---
EXAMINATION TYPE: XR chest 2V DATE OF EXAM: 09/21/2022 COMPARISON: NONE TECHNIQUE: PA and lateral views submitted. HISTORY: Shortness of breath FINDINGS: The lungs are clear and there is no pneumothorax, pleural effusion, or focal pneumonia. Heart size normal and no overt failure. Osseous structures demonstrate hypertrophic and degenerative changes of the spine. IMPRESSION: 1. No acute process.
== END | disposition home or self-care (01) ==
LOC: RADXRYALE 13:40
PROVIDERS: ATTEND Physician Assistant
DX: R06.00 Dyspnea, unspecified (principal); R00.2 Palpitations
CPT/HCPCS: 71046

== ENCOUNTER → 2022-10-18 | Outpatient (CLI) | payer OTHER ==
[2022-10-18 12:16] VITALS: BP 130/85; PULSE 67; RESP 16; TEMP 98.3
--- NOTE | 2022-10-18 12:33 | P.PN ---
Subjective Progress Note Date: 10/18/22 Principal diagnosis: fibrocystic breast changes fibrocystic breast changes fibrocystic breast Estela is a 60 year old white female seen initially in consultation for Dr. Harris with a "knot" above her right breast. This has been present for several months. She has not had anything like this in the past. It is not painful. It has gotten larger. She has not noted any other lumps masses or nodules in either breast for which she is concerned. [place] [address] which was benign BIRADS 2. She is not complaining of any nipple discharge or skin changes. She has no history of any recent trauma or infection of the breast. She underwent a punch biopsy of the skin of the right chest wall [place] [address]391. This revealed actinically damaged skin with focal mild atypia and dermal fibrosis negative for malignancy. [place] [address] this was felt to be incomplete revealing a nodular density in the inner upper right breast zone b. An ultrasound [place] [address] which did not reveal any distinct solid or cystic lesions. It was felt to be probably benign and six-month follow-up right breast mammogram was recommended. The patient has not noted any changes in either breast or chest wall. The "knot" that she had prior has not changed. 09-25-21 The patient had a bilateral mammogram on 09-04-21 at [facility]; the report was BENIGN BIRAD 2; she also had a right breast mammogram which was BIRAD 1. the recommendation was for repeat mammogram in 1 year. She is complaining of bilateral breast tenderness worse in the left breast. She notes the tenderness several times a week and they feel achy. She is not complaining of any nipple discharge She stop all caffeine, she does not smoke and is not exposed to secondhand smoke, she is not taking any hormonal therapy, and she eats chocolate only occasionally. 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 10-18-22 [place] [address]. This was BIRADS 2. She developed Belles palsy on 10-08-22. She has drooping of the left side of her mouth. She has had work-up at [place]. It is felt that she did not have a stroke. She is not complaining of any lumps masses or nodules of concern in either breast. The area in the right breast which felt like and not initially is no longer present. Caffeine: stopped hot chocolate daily nicotine: former smoker stopped 1979 Chocolate: At this time occasional Family history: Mother: Breast cancer, dx: 69 of this at 78 maternal aunt: breast cancer dx: at 47, at 57 of breast cancer brother: stomach cancer paternal grandfather: prostate Hormonal History: menarche: 17 , breast fed: no, age at first :21 menopause: uterine ablation last year, no period since, at 59 BCP: less than one year Surgical History: heel spurs two C-sections gallbaldder cyst on ovary single oophrectomy Hemorrhoid surgery RK surgery parathyroid surgery Medical History: hypothyroid hyperparathyroid followed by DR. Benji mcgee stroke symptoms resolved Belles Palsy 10-08-22 Social History: nicotine: none, stopped 1979 alcohol: none drugs: none - Constitutional Constitutional: Reports sweats - EENT Eyes: denies blurred vision, denies pain Ears: deny: decreased hearing, tinnitus Ears, nose, mouth and throat: Denies headache, Denies sore throat - Breasts Breasts: bilateral: as per HPI - Cardiovascular Cardiovascular: Denies chest pain, Denies shortness of breath - Respiratory Respiratory: Denies cough - Gastrointestinal Gastrointestinal: Reports constipation, Denies abdominal pain, Denies diarrhea, Denies nausea, Denies vomiting - Genitourinary (Female) Genitourinary: Denies dysuria, Denies hematuria - Menstruation Menstruation: Reports postmenopausal - Musculoskeletal Musculoskeletal: Reports myalgias - Integumentary Integumentary: Denies pruritus, Denies rash - Neurological Neurological: Denies numbness, Denies weakness - Psychiatric Psychiatric: Reports anxiety, Denies depression - Endocrine Comment: hypothryoid, hyperparathyroid - Hematologic/Lymphatic Comment: none - Allergic/Immunologic Allergic/Immunologic: Reports seasonal allergies Objective - Vital Signs Vital signs: Vital Signs Temp 98.3 F 10/18/22 12:13 Pulse 67 10/18/22 12:13 Resp 16 10/18/22 12:13 BP 130/85 10/18/22 12:13 Pulse Ox 97 10/18/22 12:13 FiO2 Intake & Output 10/17/22 10/18/22 10/18/22 18:59 06:59 18:59 Weight 90.718 kg - Constitutional General appearance: Present: cooperative - EENT Eyes: Present: EOMI ENT: Present: hearing grossly normal - Neck Neck: Present: normal ROM - Respiratory Respiratory: bilateral: CTA - Cardiovascular Rhythm: regular Heart sounds: normal: S1, S2 - Gastrointestinal General gastrointestinal: Present: soft - Integumentary Integumentary: Present: normal turgor - Neurologic Neurologic Comment(s): drooping of the left side of the mouth - Musculoskeletal Musculoskeletal: Present: gait normal - Psychiatric Psychiatric: Present: A&O x's 3, appropriate affect, intact judgment & insight - Additional findings Additional findings: Breast Exam: BRA: 40C inspection: bilateral grade 2/3 ptosis palpation: right breast: multipositional exam fibrocystic changes no dominant masses or nodules of concern Right axilla: No adenopathy of concern Left breast: Multi-positional exam fibrocystic changes no dominant masses or nodules of concern; there is some crusting of the left nipple area with no discrete masses or lumps behind this, there is no definite nipple discharge Left axilla: No adenopathy concern Assessment and Plan Assessment: Impression: Fibrocystic breast changes hypothyroid mini stroke symptoms resolved Belles Palsy 10-08-22, drooping of the left side of her face Bilateral mammogram on 10-08-22 BIRAD 2 Plan: Repeat bilateral mammogram in 1 year with physician exam at that time follow up is any further nipple changes CC: Dr. Rebolledo
== END ==
LOC: WWCWWP 11:42
PROVIDERS: ATTEND Surgery
DX: N60.11 Diffuse cystic mastopathy of right breast (principal); N60.12 Diffuse cystic mastopathy of left breast; E03.9 Hypothyroidism, unspecified; Z80.3 Family history of malignant neoplasm of breast; Z86.73 Personal history of transient ischemic attack (TIA), and cerebral infarction without residual deficits; Z87.19 Personal history of other diseases of the digestive system; Z87.891 Personal history of nicotine dependence; Z88.1 Allergy status to other antibiotic agents; Z88.5 Allergy status to narcotic agent; Z88.6 Allergy status to analgesic agent; Z88.8 Allergy status to other drugs, medicaments and biological substances

== ENCOUNTER → 2023-11-27 | Outpatient (CLI) | payer OTHER ==
[2023-11-27 14:40] VITALS: BP 112/74; PULSE 86; RESP 16; TEMP 97.8
--- NOTE | 2023-11-27 14:46 | P.PN ---
Subjective Progress Note Date: 11/27/23 Principal diagnosis: fibrocystic breast changes 11-27-23 Principal diagnosis: fibrocystic breast changes Estela is a 60 year old white female seen initially in consultation for Dr. Harris with a "knot" above her right breast. This has been present for several months. She has not had anything like this in the past. It is not painful. It has gotten larger. She has not noted any other lumps masses or nodules in either breast for which she is concerned. She had a bilateral mammogram on which was benign BIRADS 2. She is not complaining of any nipple discharge or skin changes. She has no history of any recent trauma or infection of the breast. She underwent a punch biopsy of the skin of the right chest wall [place] [id number]. This revealed actinically damaged skin with focal mild atypia and dermal fibrosis negative for malignancy. [place] [id number] this was felt to be incomplete revealing a nodular density in the inner upper right breast zone b. An ultrasound was recommended. Ultrasound was performed on which did not reveal any distinct solid or cystic lesions. It was felt to be probably benign and six-month follow-up right breast mammogram was recommended. The patient has not noted any changes in either breast or chest wall. The "knot" that she had prior has not changed. 09-25-21 The patient had a bilateral mammogram on 09-04-21 at [facility]; the report was BENIGN BIRAD 2; she also had a right breast mammogram which was BIRAD 1. the recommendation was for repeat mammogram in 1 year. She is complaining of bilateral breast tenderness worse in the left breast. She notes the tenderness several times a week and they feel achy. She is not complaining of any nipple discharge She stop all caffeine, she does not smoke and is not exposed to secondhand smoke , she is not taking any hormonal therapy, and she eats chocolate only occasionally. 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 10-18-22 [place] [id number]. This was BIRADS 2. She developed Belles palsy on 10-08-22. She has drooping of the left side of her mouth. She has had work-up at [place]. It is felt that she did not have a stroke. She is not complaining of any lumps masses or nodules of concern in either breast. The area in the right breast which felt like and not initially is no longer present. 11-27-23 She had a bilateral mammogram performed at [facility] on 10-14-2023 which was BI-RADS 2. She is not complaining of any new lumps masses or nodules of concern in her breast. She does have intermittent tenderness in the upper approximately 12 o'clock position in the left breast. The Ortega's palsy has improved but not completely resolved. Caffeine: stopped hot chocolate daily nicotine: former smoker stopped 1979 Chocolate: At this time occasional Family history: Mother: Breast cancer, dx: 69 of this at 78 maternal aunt: breast cancer dx: at 47, at 57 of breast cancer brother: stomach cancer paternal grandfather: prostate Hormonal History: menarche: 17 , breast fed: no, age at first :21 menopause: uterine ablation last year, no period since, at 59 BCP: less than one year Surgical History: heel spurs two C-sections gallbaldder cyst on ovary single oophrectomy Hemorrhoid surgery RK surgery parathyroid surgery Medical History: hypothyroid hyperparathyroid followed by DR. Benji mcgee stroke symptoms resolved Belles Palsy 10-08-22 Social History: nicotine: none, stopped 1979 alcohol: none drugs: none - Constitutional Constitutional: Reports sweats - EENT Eyes: denies blurred vision, denies pain Ears: deny: decreased hearing, tinnitus Ears, nose, mouth and throat: Denies headache, Denies sore throat - Breasts Breasts: bilateral: as per HPI - Cardiovascular Cardiovascular: Denies chest pain, Denies shortness of breath - Respiratory Respiratory: Denies cough - Gastrointestinal Gastrointestinal: Reports constipation, Denies abdominal pain, Denies diarrhea, Denies nausea, Denies vomiting - Genitourinary (Female) Genitourinary: Denies dysuria, Denies hematuria - Menstruation Menstruation: Reports postmenopausal - Musculoskeletal Musculoskeletal: Reports myalgias - Integumentary Integumentary: Denies pruritus, Denies rash - Neurological Neurological: Denies numbness, Denies weakness - Psychiatric Psychiatric: Reports anxiety, Denies depression - Endocrine Comment: hypothryoid, hyperparathyroid - Hematologic/Lymphatic Comment: none - Allergic/Immunologic Allergic/Immunologic: Reports seasonal allergies Objective - Vital Signs Vital signs: Intake & Output 11/26/23 11/27/23 11/27/23 18:59 06:59 18:59 Weight 89.811 kg - Constitutional General appearance: Present: cooperative - EENT Eyes: Present: EOMI ENT: Present: hearing grossly normal - Neck Neck: Present: normal ROM - Respiratory Respiratory: bilateral: CTA - Cardiovascular Rhythm: regular - Integumentary Integumentary: Present: normal turgor - Musculoskeletal Musculoskeletal: Present: gait normal - Psychiatric Psychiatric: Present: A&O x's 3, appropriate affect, intact judgment & insight - Additional findings Additional findings: Breast Exam: BRA: 40C inspection: bilateral grade 2/3 ptosis palpation: right breast: multipositional exam fibrocystic changes no dominant masses or nodules of concern Right axilla: No adenopathy of concern Left breast: Multi-positional exam fibrocystic changes no dominant masses or nodules of concern; there had been some crusting of the left nipple area in the past which is resolved at this time Left axilla: No adenopathy concern Assessment and Plan Assessment: Impression: Fibrocystic breast changes hypothyroid mini stroke symptoms resolved Belles Palsy 10-08-22, drooping of the left side of her face Bilateral mammogram on 10-14-23 BIRAD 2 Plan: Repeat bilateral mammogram in 1 year with physician exam at that time follow up sooner any questions or concerns CC: Dr. Rebolledo
== END ==
LOC: WWCWWP 14:15
PROVIDERS: ATTEND Surgery
DX: R92.8 Other abnormal and inconclusive findings on diagnostic imaging of breast (principal); N60.11 Diffuse cystic mastopathy of right breast; N60.12 Diffuse cystic mastopathy of left breast; E03.9 Hypothyroidism, unspecified; G51.0 Bell's palsy; Z80.3 Family history of malignant neoplasm of breast; Z87.891 Personal history of nicotine dependence; Z86.73 Personal history of transient ischemic attack (TIA), and cerebral infarction without residual deficits; Z88.8 Allergy status to other drugs, medicaments and biological substances; Z88.1 Allergy status to other antibiotic agents; Z88.5 Allergy status to narcotic agent; Z79.890 Hormone replacement therapy

== ENCOUNTER 2024-12-02 10:48 | Day surgery (SDC) | payer OTHER ==
[2024-12-01 13:21] VITALS: BMI 36.3
[2024-12-02 11:49] VITALS: RESP 16; TEMP 97.3
[2024-12-02] MEDS: IV FLUID CONTINUATION 1,000 ML IV ONE ×2 (11:50→12:49)
[2024-12-02] MEDS: LIDOCAINE 1% (10MG/ML) FOR IV START INTRADERMA STA (11:50)
[2024-12-02] MEDS: LACTATED RINGERS 1,000 ML IV ONE (11:50)
[2024-12-02] MEDS ORDERED: LIDOCAINE 1% INJ 10MG/ML (20 ML MDV) ONE (12:28)
[2024-12-02] MEDS ORDERED: PROPOFOL 10 MG/ML 20 ML VIAL IV ONE (12:28)
--- NOTE | 2024-12-02 12:40 | P.PCN ---
Date of Procedure: 12/02/24 Procedure(s) Performed: BRIEF HISTORY: Patient is a 64-year-old, pleasant, white female scheduled for an upper endoscopy as a part of evaluation of epigastric pain, intermittent chest pain for the last 1 month duration. She does have long-term history of reflux symptoms on and off with heartburn and indigestion.. PROCEDURE PERFORMED: Esophagogastroduodenoscopy with biopsy. PREOPERATIVE DIAGNOSIS: Epigastric pain/atypical chest pain. IV sedation per anesthesia. PROCEDURE: After informed consent was obtained, the patient was brought into the endoscopy unit. IV sedation was administered by Anesthesia under continuous monitoring. Initially the Olympus GIF-140 video endoscope was inserted into the mouth. Esophagus intubated without any difficulty. It was gradually advanced into the stomach and duodenum and carefully examined. The bulb and the second part of the duodenum appeared normal. The scope at this time was withdrawn to the stomach, adequately insufflated with air, and upon careful examination, mucosa of the antrum, and mild margin of the mucosa consistent with gastritis and biopsies were done from this area. Mucosa of the body, cardia and the fundus appeared normal. The scope was then withdrawn into the esophagus. The GE junction was located at 39 cm from the incisors. The esophagus appeared normal. There were no erosions or ulcerations seen, biopsies were done from the distal esophagus and the patient tolerated the procedure well. IMPRESSION: 1. Mild antral gastritis. 2. No evidence of esophagitis or peptic ulcer disease. RECOMMENDATIONS: The findings of this examination were discussed with the patient as well as her family. She was advised to follow-up with the biopsy results. Recommended a trial of Pepcid 20 mg twice daily and was briefly educated about antireflux measures..
[2024-12-02 13:03] VITALS: BP 123/72; PULSE 69
== END 2024-12-02 13:35 | disposition home or self-care (01) ==
LOC: ORWHC2ENDO 10:48
PROVIDERS: ATTEND Internal Medicine Gastroenterology
DX: K29.50 Unspecified chronic gastritis without bleeding (principal); K20.90 Esophagitis, unspecified without bleeding; E07.9 Disorder of thyroid, unspecified; E21.3 Hyperparathyroidism, unspecified; Z79.890 Hormone replacement therapy; Z79.899 Other long term (current) drug therapy
CPT/HCPCS: 43239; J2003; J2704; 88305

== ENCOUNTER → 2024-12-18 | Outpatient (CLI) | payer OTHER ==
--- NOTE | 2024-12-18 14:39 | P.PN ---
Subjective Progress Note Date: 12/18/24 Principal diagnosis: Fibrocystic breast changes 09-25-21 The patient had a bilateral mammogram on 09-04-21 at [facility]; the report was BENIGN BIRAD 2; she also had a right breast mammogram which was BIRAD 1. the recommendation was for repeat mammogram in 1 year. She is complaining of bilateral breast tenderness worse in the left breast. She notes the tenderness several times a week and they feel achy. She is not complaining of any nipple discharge She stop all caffeine, she does not smoke and is not exposed to secondhand smoke, she is not taking any hormonal therapy, and she eats chocolate only occasionally. 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 10-18-22 The patient had bilateral mammogram on . This was BIRADS 2. She developed Belles palsy on 10-08-22. She has drooping of the left side of her mouth. She has had work-up at [place]. It is felt that she did not have a st roke. She is not complaining of any lumps masses or nodules of concern in either breast. The area in the right breast which felt like and not initially is no longer present. 11-27-23 She had a bilateral mammogram performed at [facility] on 10-14-2023 which was BI-RADS 2. She is not complaining of any new lumps masses or nodules of concern in her breast. She does have intermittent tenderness in the upper approximately 12 o'clock position in the left breast. The Ortega's palsy has improved but not completely resolved. 12-18-24 Bilateral mammogram [facility] 10-15-2024 BI-RADS 2 She is not concerned about any new lumps masses or nodules of concern in either breast She has recovered well from the Ortega's palsy, however she notices that if she is tired she has some drooping of the left eye and the left side of her face. She is not complaining of any pain in her breast Caffeine: stopped hot chocolate daily nicotine: former smoker stopped 1980 Chocolate: At this time occasional Family history: Mother: Breast cancer, dx: 69 of this at 78 maternal aunt: breast cancer dx: at 47, at 57 of breast cancer brother: stomach cancer paternal grandfather: prostate Hormonal History: menarche: 17 , breast fed: no, age at first :21 menopause: uterine ablation last year, no period since, at 59 BCP: less than one year Surgical History: heel spurs two C-sections gallbaldder cyst on ovary single oophrectomy Hemorrhoid surgery RK surgery parathyroid surgery Medical History: hypothyroid hyperparathyroid followed by DR. Benji mcgee stroke symptoms resolved Belles Palsy 10-08-22 wearing a heart monitor now Social History: nicotine: none, stopped 1979 alcohol: none drugs: none - Constitutional Constitutional: Reports sweats - EENT Eyes: denies blurred vision, denies pain Ears: deny: decreased hearing, tinnitus Ears, nose, mouth and throat: Denies headache, Denies sore throat - Breasts Breasts: bilateral: as per HPI - Cardiovascular Cardiovascular: Denies chest pain, Denies shortness of breath - Respiratory Respiratory: Denies cough - Gastrointestinal Gastrointestinal: Reports constipation, Denies abdominal pain, Denies diarrhea, Denies nausea, Denies vomiting - Genitourinary (Female) Genitourinary: Denies dysuria, Denies hematuria - Menstruation Menstruation: Reports postmenopausal - Musculoskeletal Musculoskeletal: Reports myalgias - Integumentary Integumentary: Denies pruritus, Denies rash - Neurological Neurological: Denies numbness, Denies weakness - Psychiatric Psychiatric: Reports anxiety, Denies depression - Endocrine Comment: hypothryoid, hyperparathyroid - Hematologic/Lymphatic Comment: none - Allergic/Immunologic Allergic/Immunologic: Reports seasonal allergies Objective - Constitutional General appearance: Present: cooperative - EENT Eyes: Present: EOMI ENT: Present: hearing grossly normal - Neck Neck: Present: normal ROM - Respiratory Respiratory: bilateral: CTA - Cardiovascular Rhythm: regular Heart sounds: normal: S1, S2 - Integumentary Integumentary: Present: normal turgor - Musculoskeletal Musculoskeletal: Present: gait normal - Psychiatric Psychiatric: Present: A&O x's 3, appropriate affect, intact judgment & insight - Additional findings Additional findings: Breast Exam: BRA: 40C inspection: bilateral grade 2/3 ptosis palpation: right breast: multipositional exam fibrocystic changes no dominant masses or nodules of concern Right axilla: No adenopathy of concern Left breast: Multi-positional exam fibrocystic changes no dominant masses or nodules of concern; there had been some crusting of the left nipple area in the past which is resolved at this time Left axilla: No adenopathy concern Assessment and Plan Assessment: Impression: Fibrocystic breast changes hypothyroid mini stroke symptoms resolved Belles Palsy 10-08-22, drooping of the left side of her face Bilateral mammogram on 10-15-24 BIRAD 2 from [facility] Plan: Repeat bilateral mammogram in 1 year; september 2025 with physician exam at that time follow up sooner any questions or concerns CC: Dr. Rebolledo
[2024-12-18 14:40] VITALS: BP 121/79; PULSE 74; RESP 17; TEMP 97.9
== END ==
LOC: WWCWWP 14:21
PROVIDERS: ATTEND Surgery
DX: N60.19 Diffuse cystic mastopathy of unspecified breast (principal); E03.9 Hypothyroidism, unspecified; I63.9 Cerebral infarction, unspecified; Z88.1 Allergy status to other antibiotic agents; Z88.5 Allergy status to narcotic agent; Z87.891 Personal history of nicotine dependence; Z91.048 Other nonmedicinal substance allergy status; Z88.6 Allergy status to analgesic agent